=== PATIENT | female | born 1965 | race Caucasian/White ===

== ENCOUNTER 2022-05-05 10:40 | Day surgery (SDC) | payer BC ==
[~2022-05-05] VITALS: Ht 167.6 cm; Wt 85.0 kg
--- NOTE | 2022-05-05 10:30 | NUR ---
PT H&P REPORTS POSSIBLE ALLERGY TO CLINDAMYACIN. CLINDAMYACIN ORDER FOR PRE OP ABX. PHARMACY ORDERED FOR CLINDAMYACIN TO BE CHANGED TO ANCEF DUE TO HOSPITAL POLICY. THIS RN SPOKE TO DR SHEPARD REGARDING THE SITUATION. DR SHEPARD CONFIRMED THAT PT DOES NOT HAVE ALLERGY TO CLINDAMYACIN. DR SHEPARD ORDERED ANCEF PER PHARMACY REQUEST. DR SHEPARD ALSO STATES HE WILL "LOOK INTO ORDER SOMETHING MORE THAN ANCEF DUE TO THAT NOT BEING ENOUGH".
[~2022-05-05 10:40] MED LIST: AIRBORNE TABLE1 EACH PO; BAYER CHEWABLE81 MG PO; EMERGEN-C 500500 MG PO; LIPITOR20 MG PO; OSTERA TABLET1 EACH PO; VISION FORMULA PO; VITAMIN D3125 MC1 PO; WOMEN'S 50 PLU1 EACH PO
--- NOTE | 2022-05-05 11:44 | NUR ---
05/05/22 1144 Bridgette Bowen 1139 PATIENT ARRIVES TO PACU RESTING WITH EYES CLOSED. ASKS/ANSWERS QUESTIONS APPROPRIATELY. RESP EVEN AND UNLABORED, ROOM AIR SATS >97%. DENIES PAIN OR NAUSEA.
--- NOTE | 2022-05-05 11:46 | NUR ---
PROFESSIONAL SERVICES MANAGER NAIDA IN TO TAKE PT FOR SCOPE. PT VISIBLY UPSET, I AM FAMILIAR WITH THIS PT. NAIDA WAITED, ALLOWED ME TO COMFORT PT AND HER BISI. GAVE SUPPORT, PRAYED WITH PT.BILL WILL REMAIN FOR DC. PT HAS GREAT ANXIETY OVER ANY MEDICAL PROCEDURE. GAVE ENCOURAGEMENT, STAYED WITH BILL FOR A MOMENT. WILL FOLLOW
--- NOTE | 2022-05-05 13:12 | OR ---
[facility] [address], [place] [address] Signed DATE OF OPERATION: 05/05/2022 SURGEON: Darshana Shepard MD PREOPERATIVE DIAGNOSES: 1. Colon screening. 2. History of aortic valve replacement for aortic stenosis and placement of pacemaker. POSTOPERATIVE DIAGNOSIS: Normal colon to cecum. PROCEDURE: Total colonoscopy to cecum with intubation of ileum. ANESTHESIA: Intravenous sedation; propofol infusion, Michael Mac CRNA and preoperative antibiotic Ancef 2 g. INDICATION: This 56-year-old white woman is a patient of STEPHANI Rodrigez. She last underwent colonoscopy in 2012, which was normal. She is symptom-free at this time and has been recommended by her primary provider to undergo screening colonoscopy. She currently has no bleeding, diarrhea or constipation. The patient underwent open-heart operation on January 2016 for aortic stenosis, having an aortic valve replacement. A bovine prosthetic valve was implanted. She is not on chronic anticoagulation. She subsequently had complete heart block in January of 2018 requiring a pacemaker. She is symptom-free regarding cardiac as well as gastrointestinal symptoms. She is admitted at this time to undergo colonoscopy. She understands the risks of bleeding, infection, and perforation. FINDINGS: The prep was good. Complete colonoscopy was undertaken to the cecum without problem. Intubation of the ileum was accomplished as well, it too was normal. DESCRIPTION OF PROCEDURE: The patient was brought to the endoscopy suite and placed in the lateral decubitus position. Preoperative antibiotic Ancef had been given based on current guidelines for prophylaxis regarding aortic valve. She was given intravenous sedation with propofol infusional technique with full cardiopulmonary monitoring. Digital rectal examination was normal. Electronically Signed By: DARSHANA SHEPARD MD 05/05/22 1312 PATIENT NAME: LILA CANNON OPERATIVE REPORT DATE OF : 61 REPORT #: [id number] PHYSICIAN: DARSHANA SHEPARD MD PCP: SHU DEL TORO PAC REPORT IS CONFIDENTIAL AND NOT TO BE RELEASED WITHOUT AUTHORIZATION [facility] [address], [place] [address] Signed An Olympus video colonoscope was passed in the rectum and manipulated throughout the colon ultimately intubating the cecum itself. The ileocecal valve was quite easily identified and easily intubated showing normal ileum to about 6-8 cm at least. The scope was then withdrawn and examination throughout thoroughly undertaken showed no evidence of polyps, diverticular formation, colitis, or cancer. Retroflexed view of the rectum was normal as well. The scope was removed and the patient was taken to the recovery room in good condition. CONCLUDING DIAGNOSIS: Normal colon and ileum. PLAN: Recommend repeat colonoscopy in 10 years, sooner if clinically indicated. She will return to the ongoing care of Shu Del Toro. MD JANEL Rocha/JENN /[id number] cc: STEPHANI Rodrigez Copies: ~ Electronically Signed By: DARSHANA SHEPARD MD 05/05/22 1312 PATIENT NAME: LILA CANNON OPERATIVE REPORT DATE OF : 61 REPORT #: [id number] PHYSICIAN: DARSHANA SHEPARD MD PCP: SHU DEL TORO PAC REPORT IS CONFIDENTIAL AND NOT TO BE RELEASED WITHOUT AUTHORIZATION
== END 2022-05-05 12:05 | disposition home or self-care (01) ==
LOC: OPS 10:40 → DS 10:40 → OPS 12:05 → DS 13:30
PROVIDERS: ATTEND Surgery
PROC: 0DJD8ZZ Inspection of Lower Intestinal Tract, Via Natural or Artificial Opening Endoscopic (ICD-10-PCS; principal; 2022-05-05 13:30)
DX: Z12.11 Encounter for screening for malignant neoplasm of colon (principal); Z95.4 Presence of other heart-valve replacement; Z86.79 Personal history of other diseases of the circulatory system; Z88.0 Allergy status to penicillin; Z88.2 Allergy status to sulfonamides
CPT/HCPCS: J0690; J2704; J7121